=== PATIENT | male | born 1975 | race Caucasian/White ===

== ENCOUNTER 2025-01-19 23:32 | Emergency (ER) | payer OTHER, MEDICAID, SELFPAY ==
[2025-01-19 23:38] VITALS: BP 142/93; PULSE 75; RESP 20; TEMP 37; O2SAT 97; BMI 37.0
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
--- OUTSIDE RECORDS SUMMARY | 2025-01-20 00:39 | XMS_ITS | Encounter Summary ---
Author Organization [facility] Address [address] [place] [address] Care Team Providers Care Technology Auditor Name Role Phone Unavailable Primary Care Provider Unavailabl e Prior Encounters Date Type Department Care Team Description 03/10/2019 Converted CPS Chart Documents [facility] [address] [place] [address] <No scans attached> 03/10/2019 Converted CPS Chart Documents [facility] [id number], [place] [address] <No scans attached> 03/10/2019 Converted 13x Documents [facility] [id number], [place] [address] <No scans attached> 03/10/2019 Converted 13x Documents [facility] [address] [place] [address] <No scans attached> Plan of Treatment Not on file Procedures Procedure Name Priority Date/Time Associated Diagnosis Comments MISSED APPOINTMENT Routine 11/07/2017 12 :00 AM PDT CANCELLED APPOINTMENT Routine 08/23/2017 12:00 AM PDT UL ANTIBACT IRR/QUAD Routine 05/03/2017 12:00 AM PDT LOCAL ANESTHESIA IN CONJUNCTION WITH OPERATIVE OR SURGICAL PROCEDURES Routine 05/03/2017 12:00 AM PDT INTRAORAL PHOTO Routine 05/03/2017 12:00 AM PDT 19 ENDODONTIC THERAPY, MOLAR TOOTH (EXCLUDING FINAL ISLAM) Routine 05/03/2017 12:00 AM PDT 19 CROWN - FULL CAST PREDOMINANTLY BASE METAL Routine 05/03/2017 12:00 AM PDT 13 MOD AMALGAM 3 SURFACE Routine 018 12:00 AM PDT 31 MO AMALGAM 2 SURFACE Routine 05/04/19 18 12:00 AM PDT 18 MO AMALGAM 2 SURFACE Routine 05/04/19 18 12:00 AM PDT 12 DO AMALGAM 2 SURFACE Routine 05/04/19 18 12:00 AM PDT 21 O AMALGAM 1 SURFACE Routine 8 12:00 AM PDT 20 O AMALGAM 1 SURFACE Routine 8 12:00 AM PDT 30 ENDODONTIC THERAPY, MOLAR TOOTH (EXCLUDING FINAL ISLAM) Routine 05/03/2017 12:00 AM PDT 4 ENDODONTIC THERAPY, PREMOLAR TOOTH (EXCLUDING FINAL ISLAM) Routine 05/03/2017 12:00 AM PDT 15 CROWN PFM POST Routine 05/03/2017 12: 00 AM PDT 14 CROWN PFM POST Routine 05/03/2017 12: 00 AM PDT 30 CROWN PFM POST Routine 05/03/2017 12: 00 AM PDT 4 CROWN PFM POST Routine 05/03/2017 12:0 0 AM PDT ADJUNCTIVE PRE-DIAGNOSTIC TEST THAT AIDS IN DETECTION OF MUCOSAL ABNORMALITIES Routine 05/03/2017 12:00 AM PDT COMPREHENSIVE ORAL EVALUATION - NEW OR ESTABLISHED PATIENT Routine 05/03/2017 12:00 AM PDT ORAL HYGIENE INSTRUCTIONS Routine 2017 12:00 AM PDT LR TOSHIA DECON/QD Routine 05/03/2017 12:00 AM PDT LL TOSHIA DECON/QD Routine 05/03/2017 12:00 AM PDT UL TOSHIA DECON/QD Routine 05/03/2017 12:00 AM PDT UR TOSHIA DECON/QD Routine 05/03/2017 12:00 AM PDT 3 UR PERIODONTAL SCALING AND ROOT PLANING - ONE TO THREE TEETH PER QUADRANT Routine 05/03/2017 12:00 AM PDT 14 UL PERIODONTAL SCALING AND ROOT PLANING - ONE TO THREE TEETH PER QUADRANT Routine 05/03/2017 12:00 AM PDT 30 LR PERIODONTAL SCALING AND ROOT PLANING - ONE TO THREE TEETH PER QUADRANT Routine 05/03/2017 12:00 AM PDT 19 LL PERIODONTAL SCALING AND ROOT PLANING - ONE TO THREE TEETH PER QUADRANT Routine 05/03/2017 12:00 AM PDT UR ANTIBACT IRR/QUAD Routine 05/03/2017 12:00 AM PDT LR ANTIBACT IRR/QUAD Routine 05/03/2017 12:00 AM PDT LL ANTIBACT IRR/QUAD Routine 05/03/2017 12:00 AM PDT LOCAL ANESTHESIA IN CONJUNCTION WITH OPERATIVE OR SURGICAL PROCEDURES Routine 05/03/2017 12:00 AM PDT PANORAMIC RADIOGRAPHIC IMAGE Routine 05/03/2017 12:00 AM PDT INTRAORAL - COMPREHENSIVE SERIES OF RADIOGRAPHIC IMAGES Routine 05/03/2017 12:00 AM PDT PLAN VISIT FEE Routine 05/03/2017 12:00 AM PDT INTRAORAL PHOTO Routine 05/03/2017 12:00 AM PDT INTRAORAL PHOTO Routine 05/03/2017 12:00 AM PDT INTRAORAL PHOTO Routine 05/03/2017 12:00 AM PDT INTRAORAL PHOTO Routine 05/03/2017 12:00 AM PDT INTRAORAL PHOTO Routine 05/03/2017 12:00 AM PDT INTRAORAL PHOTO Routine 05/03/2017 12:00 AM PDT INTRAORAL PHOTO Routine 05/03/2017 12:00 AM PDT INTRAORAL PHOTO Routine 05/03/2017 12:00 AM PDT INTRAORAL PHOTO Routine 05/03/2017 12:00 AM PDT CANCELLED APPOINTMENT Routine 04/20/2017 12:00 AM PST 3 CROWN PFM POST Routine 04/16/2017 12:0 0 AM PST 2 CROWN PFM POST Routine 04/16/2017 12:0 0 AM PST 2 CORE BUILDUP, INCLUDING ANY PINS WHEN REQUIRED Routine 04/16/2017 12:00 AM PST 2 RECEMENT CROWN Routine 04/16/2017 12:0 0 AM PST 2 LIMITED ORAL EVALUATION - PROBLEM FOCUSED Routine 04/16/2017 12:00 AM PST BITEWINGS - TWO RADIOGRAPHIC IMAGES Routine 04/16/2017 12:00 AM PST ADDITIONAL X-RAY Routine 04/16/2017 12:0 0 AM PST 2 CROWN Routine 04/16/2017 12:00 AM PST CANCELLED APPOINTMENT Routine 01/05/2009 12:00 AM PST BITEWINGS - TWO RADIOGRAPHIC IMAGES Routine 11/25/2008 12:00 AM PDT 3 CEMENT CROWN Routine 11/25/2008 12:00 AM PDT UR PERIODONTAL SCALING AND ROOT PLANING - FOUR OR MORE TEETH PER QUADRANT Routine 11/19/2008 12:00 AM PDT UL PERIODONTAL SCALING AND ROOT PLANING - FOUR OR MORE TEETH PER QUADRANT Routine 11/19/2008 12:00 AM PDT LR PERIODONTAL SCALING AND ROOT PLANING - FOUR OR MORE TEETH PER QUADRANT Routine 11/19/2008 12:00 AM PDT LL PERIODONTAL SCALING AND ROOT PLANING - FOUR OR MORE TEETH PER QUADRANT Routine 11/19/2008 12:00 AM PDT ORAL HYGIENE INSTRUCTIONS Routine 2008 12:00 AM PDT UR ANTIBACT IRR/QUAD Routine 11/19/2008 12:00 AM PDT UL ANTIBACT IRR/QUAD Routine 11/19/2008 12:00 AM PDT LR ANTIBACT IRR/QUAD Routine 11/19/2008 12:00 AM PDT LL ANTIBACT IRR/QUAD Routine 11/19/2008 12:00 AM PDT FM IRR W/GROSS SCALE Routine 11/19/2008 12:00 AM PDT DEBRIDEMENT TO ENABLE A COMPREHENSIVE PERIODONTAL EVAL AND DIAGNOSIS ON A SUBSEQUENT VISIT Routine 11/19/2008 12:00 AM PDT IPE Routine 11/19/2008 12:00 AM PDT PLAN VISIT FEE Routine 11/19/2008 12:00 AM PDT 13 MOD AMALGAM 3 SURFACE Routine 009 12:00 AM PDT 4 MOD AMALGAM 3 SURFACE Routine 11/18/19 09 12:00 AM PDT 31 MO AMALGAM 2 SURFACE Routine 11/18/19 09 12:00 AM PDT 29 DO AMALGAM 2 SURFACE Routine 11/18/19 09 12:00 AM PDT 18 MO AMALGAM 2 SURFACE Routine 11/18/19 09 12:00 AM PDT 15 LO AMALGAM 2 SURFACE Routine 11/18/19 09 12:00 AM PDT 12 DO AMALGAM 2 SURFACE Routine 11/18/19 09 12:00 AM PDT 5 DO AMALGAM 2 SURFACE Routine 9 12:00 AM PDT 21 O AMALGAM 1 SURFACE Routine 9 12:00 AM PDT 20 O AMALGAM 1 SURFACE Routine 9 12:00 AM PDT 14 CROWN PFM POST Routine 11/17/2008 12: 00 AM PDT 2 CROWN PFM POST Routine 11/17/2008 12:0 0 AM PDT BITEWINGS - FOUR RADIOGRAPHIC IMAGES Routine 11/17/2008 12:00 AM PDT ADDITIONAL X-RAY Routine 11/17/2008 12:0 0 AM PDT ADDITIONAL X-RAY Routine 11/17/2008 12:0 0 AM PDT ADDITIONAL X-RAY Routine 11/17/2008 12:0 0 AM PDT ADDITIONAL X-RAY Routine 11/17/2008 12:0 0 AM PDT ADDITIONAL X-RAY Routine 11/17/2008 12:0 0 AM PDT SINGLE X-RAY Routine 11/17/2008 12:00 AM PDT INTRAORAL PHOTO Routine 11/17/2008 12:00 AM PDT INTRAORAL PHOTO Routine 11/17/2008 12:00 AM PDT INTRAORAL PHOTO Routine 11/17/2008 12:00 AM PDT INTRAORAL PHOTO Routine 11/17/2008 12:00 AM PDT PERIODIC ORAL EVALUATION - ESTABLISHED PATIENT Routine 11/17/2008 12:00 AM PDT PLAN VISIT FEE Routine 11/17/2008 12:00 AM PDT 8 DL COMPOSITE FILLING Routine 9 12:00 AM PDT 3 CEMENT CROWN Routine 01/15/2007 12:00 AM PST MISSED APPOINTMENT Routine 01/15/2007 12 :00 AM PST UR LIMITED ORAL EVALUATION - PROBLEM FOCUSED Routine 01/01/2007 12:00 AM PST UR LIMITED ORAL EVALUATION - PROBLEM FOCUSED Routine 12/21/2006 12:00 AM PDT 30 CEMENT CROWN Routine 12/17/2006 12:00 AM PDT 3 CEMENT CROWN Routine 12/17/2006 12:00 AM PDT 30 ENDODONTIC THERAPY, MOLAR TOOTH (EXCLUDING FINAL ISLAM) Routine 12/17/2006 12:00 AM PDT LR LIMITED ORAL EVALUATION - PROBLEM FOCUSED Routine 12/17/2006 12:00 AM PDT 30 MOD AMALGAM 3 SURFACE Routine 007 12:00 AM PDT 30 [facility] MADE CROWN POST Routine 11/27/2006 12:00 AM PDT 3 [facility] MADE CROWN POST Routine 11/27/2006 12:00 AM PDT 30 CORE BUILDUP, INCLUDING ANY PINS WHEN REQUIRED Routine 11/27/2006 12:00 AM PDT 3 CORE BUILDUP, INCLUDING ANY PINS WHEN REQUIRED Routine 11/27/2006 12:00 AM PDT 19 CEMENT CROWN Routine 11/27/2006 12:00 AM PDT 30 [facility] COPING Routine 11/27/2006 12 :00 AM PDT 3 [facility] COPING Routine 11/27/2006 12: 00 AM PDT LR LIMITED ORAL EVALUATION - PROBLEM FOCUSED Routine 11/27/2006 12:00 AM PDT ADDITIONAL X-RAY Routine 11/27/2006 12:0 0 AM PDT ADDITIONAL X-RAY Routine 11/27/2006 12:0 0 AM PDT SINGLE X-RAY Routine 11/27/2006 12:00 AM PDT INTRAORAL PHOTO Routine 11/27/2006 12:00 AM PDT BITEWINGS - FOUR RADIOGRAPHIC IMAGES Routine 09/20/2006 12:00 AM PDT ADDITIONAL X-RAY Routine 09/20/2006 12:0 0 AM PDT ADDITIONAL X-RAY Routine 09/20/2006 12:0 0 AM PDT ADDITIONAL X-RAY Routine 09/20/2006 12:0 0 AM PDT ADDITIONAL X-RAY Routine 09/20/2006 12:0 0 AM PDT ADDITIONAL X-RAY Routine 09/20/2006 12:0 0 AM PDT SINGLE X-RAY Routine 09/20/2006 12:00 AM PDT 3 MODL AMALGAM 4+ SURFACE Routine 2006 12:00 AM PDT 19 ENDODONTIC THERAPY, MOLAR TOOTH (EXCLUDING FINAL ISLAM) Routine 09/17/2006 12:00 AM PDT 19 CROWN PFM POST Routine 09/17/2006 12: 00 AM PDT 19 [facility] MADE CROWN POST Routine 09/17/2006 12:00 AM PDT 19 CORE BUILDUP, INCLUDING ANY PINS WHEN REQUIRED Routine 09/17/2006 12:00 AM PDT 19 ZIR[facility] COPING Routine 09/17/2006 12 :00 AM PDT MISSED APPOINTMENT Routine 09/05/2006 12 :00 AM PDT FM BLEACH IN-OFFICE Routine 08/13/2006 1 2:00 AM PDT MISSED APPOINTMENT Routine 08/02/2006 12 :00 AM PDT MISSED APPOINTMENT Routine 11/15/2005 12 :00 AM PDT CANCELLED APPOINTMENT Routine 09/30/2005 12:00 AM PDT OFFICE VISIT FOR OBSERVATION (DURING REGULARLY SCHEDULED HOURS) - NO OTHER SERVICES PERFORMED Routine 07/26/2005 12:00 AM PDT SINGLE X-RAY Routine 07/25/2005 12:00 AM PDT LIMITED ORAL EVALUATION - PROBLEM FOCUSED Routine 07/25/2005 12:00 AM PDT PANORAMIC RADIOGRAPHIC IMAGE Routine 03/29/2005 12:00 AM PST INTRAORAL - COMPREHENSIVE SERIES OF RADIOGRAPHIC IMAGES Routine 03/29/2005 12:00 AM PST COMPREHENSIVE ORAL EVALUATION - NEW OR ESTABLISHED PATIENT Routine 03/29/2005 12:00 AM PST Visit Diagnoses Not on file
--- OUTSIDE RECORDS SUMMARY | 2025-01-20 00:39 | XMS_ITS | Clinical Summary ---
Author Organization [facility] Address [address] [place] [id number] Care Team Providers Care Intermediate Card Tender Name Role Phone Virgen White MD Unavailable Titus Conrad MD Primary Care Provider [phone] Allergies No known active allergies Medications durable medical equipment (DME)Indications :Right carpal tunnel syndrome QUICKFIT WRIST II, UNIV/XL, RT 1 Each 06/17/19 23 Active durable medical equipment (DME)Indications :Left carpal tunnel syndrome QUICKFIT WRIST II, UNIV/XL, LT 1 Each 06/17/19 23 Active CPAPIndications: FELIPE (obstructive sleep apnea) CPAP machine for home use at pressure 10 cmw, full face mask x1/3month with a full face cushion x1/mo 1 Each 11 11/22/19 23 Active oxyCODONE-acetam inophen (PERCOCET) 5-325 mg per tabletIndication s:S/P cubital tunnel release,S/P carpal tunnel release Take 1-2 Tablets by mouth every 4 hours if needed for Pain. Max acetaminophen dose: 4000mg in 24 hrs. 15 Tablet 05/03/2023 8:49 AM CDT 05/02/19 24 Active Additional Information Patient not taking.Reason: finished., Reported on 08/29/2024 ibuprofen (ADVIL; MOTRIN) 800 mg tabletIndication s:Closed nondisplaced fracture of proximal phalanx of right thumb, initial encounter Take 1 Tablet (800 mg) by mouth every 8 hours if needed for Pain. 30 Tablet 06/24/19 24 Active pantoprazole (PROTONIX) 40 mg delayed-release tabletIndication s:Chronic GERD Take 1 Tablet (40 mg) by mouth once daily before a meal. 90 Tablet 3 08/30/19 25 Active Active Problems Problem Noted Date Diagnosed Date Chronic left shoulder pain 09/09/2024 Restless leg syndrome 11/21/2022 Chronic GERD 07/21/2022 Third degree burn of right knee 07/13/2022 07/21/2022 Right carpal tunnel syndrome 06/16/2022 Left carpal tunnel syndrome 06/16/2022 Cubital tunnel syndrome on right 06/16/2022 Cubital tunnel syndrome on left 06/16/2022 Trigger middle finger of right hand 06/16/2022 FELIPE 11/26/2015 AHI- 20 05/14/2020 Overview (10/17/2021): Moderate OBSTRUCTIVE SLEEP APNEA sleep study 11/26/2015 see scan wearing cpap Tobacco dependence 05/14/2020 Major depressive disorder, recurrent episode, mo derate 03/20/2019 Generalized anxiety disorder 03/20/2019 PTSD (post-traumatic stress disorder) 03/10/2019 Trochanteric bursitis of right hip 04/11/2018 Arthritis of knee, right 03/14/2018 Arthritis of right hip 03/14/2018 Facet arthropathy, lumbosacral 12/09/2017 Low back pain radiating to left leg 11/15/2017 Lumbar disc herniation L5-S1 11/15/2017 Upper back pain 11/15/2017 Neck pain 11/15/2017 Other hyperlipidemia 10/24/2017 Overview (10/24/2017): was on statin Blood per rectum Resolved Problems Problem Noted Date Diagnosed Date Resolved Date Cannabis use disorder, severe, dependence 08/29/2021 04/27/2023 S/P shoulder surgery 01/09/2019 022 Arthrosis of right acromioclavicular joint 01/06/2019 08/30/2021 Chronic right shoulder pain 01/06/2019 08/30/2021 Encounters Date Type Department Care Team Description 01/08/2025 Telephone [facility] [place] [address] [address] [phone] Adam Hodgson MD Form (letter needed ) from Last 3 Months Immunizations Immunization Administration Dates Next Due TD, UNSPECIFIED 02/19/2006 Tdap 07/07/2022,07/16/2015 Typhoid (injectable) 11/07/2018 Yellow Fever (Stamaril) 11/07/2018 Family History Medical History Relation Name Comments Hypertension Father Heart failure Maternal Grandfather heart attack Diabetes Mother Cancer Paternal Grandfather Anesthesia Problem No Family History Relation Name Status Comments Brother 1 Alive Brother 2 Alive Brother 3 Alive Daughter Alive Father Alive Maternal Grandfather (Age 47) Maternal Grandmother Mother Alive Paternal Grandfather Paternal Grandmother Sister 1 Alive Sister 2 Alive Sister 3 Alive Social History Tobacco Use Types Packs/Day Years Used Date Smoking Tobacco: Every Day Cigarettes 1 16.4 Started: 2003; Last attempted to quit: 11/28/2018 Smokeless Tobacco: Never Comments:May 10, 2020 Alcohol Use Standard Drinks/Week Comments Not Currently 0 (1 standard drink = 0.6 oz pur e alcohol) rare PHQ-2 Answer Date Recorded PHQ-2 TOTAL SCORE 2 08/29/2024 Social Connections Answer Date Recorded Do you often feel lonely or isolated from those around you? 0 08/29/2024 Financial Resource Strain Answer Date R ecorded Difficulty of Paying Living Expenses 3 08/29/2024 Difficulty of Paying Living Expenses Not on file 08/29/2024 Food Insecurity Answer Date Recorded Do you worry your food will run out before you are able to buy more? 1 08/29/2024 Transportation Needs Answer Date Record ed Does lack of transportation keep you from medica l appointments? 1 08/29/2024 Does lack of transportation keep you from work, meetings or getting things that you need? 1 08/29/2024 Housing Stability Answer Date Recorded What is your housing situation today? 1 08/29/2024 Interpersonal Safety Answer Date Record ed Are you being hit, kicked, p ushed or yelled at (see row info)? No 06/24/2023 Interpersonal Safety Abuse 12 - 18 Not on file 06/24/2023 Interpersonal Safety Ambulatory Vulnerability No t on file 06/24/2023 Utilities Answer Date Recorded Do you have trouble paying f or utilities (for example, heat, electricity, water, phone)? 1 08/29/2024 Sex and Gender Information Value Date Recorded Sex Assigned at Male 11/21/2022 10:50 AM CDT Legal Sex Male 11:50 AM CDT Gender Identity Male 11/21/2022 10:50 AM CDT Sexual Orientation Straight 11/21/2022 10 :50 AM CDT Occupation Industry Job Start Date Job End Date disability/retired from firefighting Not on file Not on file Not on file Obstetrics History Last Filed Vital Signs Vital Sign Reading Time Taken Comments Blood Pressure 117/77 08/29/2024 2:28 PM CDT Pulse 78 08/29/2024 2:28 PM CDT Temperature 36.7 C (98.1 F) 06/24/2023 8:26 PM CDT Respiratory Rate 16 06/24/2023 8:26 PM CDT Oxygen Saturation 98% 08/29/2024 2:28 PM CDT Inhaled Oxygen Concentration - - Weight 108.4 kg (239 lb) 08/29/2024 2:28 PM CDT Height 178.3 cm (5' 10.2) 08/29/2024 2:28 PM CD T Body Mass Index 34.1 08/29/2024 2:28 PM CDT Plan of Treatment Upcoming Encounters Date Type Department Care Team (Late st Contact Info) Description 01/26/2025 1:00 PM COUNTERINTELLIGENCE/HUMINT SPECIALIST Appointment [facility] [address] [place] [address] 02/02/2025 2:00 PM COUNTERINTELLIGENCE/HUMINT SPECIALIST Office Visit [facility] [address] [place] [address] Christopher Quiroz MD [address] [place] [address] Health Maintenance Due Date Last Done Comments Hepatitis B series for 19+ ( 1 of 3 - 19+ 3-dose series) 1993 Pneumococcal series for age 50+ (1 of 2 - PCV) 1993 Zoster (shingles) series for age 50+ (1 of 2) 2024 COVID-19 vaccine series (1 - 2024- season) 2024 Influenza Vaccine (#1) 2024 BMI (ht and wt on same day) for age 18+ 08/29/2025 08/29/2024, 04/27/2023, 08/30/2021, Additional history exists Depression screening for age 12+ 08/29/2025 08/29/2024, 08/30/2021, 05/14/2020, Additional history exists Lipids for age 45-75 08/30/2026 08/30/2021, 08/30/2021, 01/06/2019, Additional history exists Colonoscopy through age 75 03/15/202903/15, 05/20/2016 ([facility]) Tetanus booster 07/07/2032 07/07/2022, 06/20, 02/19/2006 RSV vaccine for adults or (1 - 1-dose 75+ series) 2049 Hepatitis C screening for ag e 18-79 Completed 08/30/2021 HIV for age 15-65 Completed 08/29/2024 Procedures Procedure Name Priority Date/Time Associated Diagnosis Comments ANTI HIV 1/2 Routine 08/29/2024 3:36 PM CDT Screening for HIV (human immunodeficiency virus) COLONOSCOPY 03/15/2022 10:10 AM COUNTERINTELLIGENCE/HUMINT SPECIALIST ANTI HCV Routine 08/30/2021 11:53 AM CDT Encounter for hepatitis C screening test for low risk patient LDL CHOLESTEROL,DIRECT Routine 08/30/2021 11:53 AM CDT Obesity, Class II, BMI 35-39.9 from Last 3 Months or Most Recently Relevant to Health Maintenance Results * ANTI HIV 1/2 [65894.0] (08/29/2024 3:36 PM CDT) HIV FINAL INTERPRETATOIN [facility] Comment: HIV Negative HIV-1 antigen and HIV-1/HIV-2 antibodies were not detected. There is no laboratory evidence of HIV infection. HIV AG/AB, 4TH GEN NON-REACT SHITAL NON-REACT SHITAL [facility] Blood BLOOD SPECIMEN / Unknown 08/29/2024 3:36 PM CDT 08/29/2024 3:37 PM CDT us Titus Conrad MD SEND OUTS Final Resu lt [facility] [address] [place] [address], [facility] [address] [place] [address] * COLONOSCOPY (03/15/2022 10:10 AM COUNTERINTELLIGENCE/HUMINT SPECIALIST) 03/15/2022 10:1 0 AM COUNTERINTELLIGENCE/HUMINT SPECIALIST Narrative Transcriptions Ariana Davalos DO - 03/15/2022 1:37 PM CST Patient Name: Yousuf Ruby Procedure Date: 03/15/2022 Gender: Male Date of : 1975 Admit Type: Ambulatory Procedure: Colonoscopy Proceduralist: Ariana Davalos MD Indications/Pre-Op Diagnosis: Rectal bleeding, Change in bowel habits Medications: Propofol per Anesthesia, MonitoredAnesthesia Care Procedure Description: The patient had risks, benefits and alternatives explained to andgave informed consent. The patient had a stable cardiopulmonary status and judged an adequate candidate for conscious sedation. The endoscope [id number] was passed through the anus and advanced to 4 cm into the ileum. The colonoscopy was performedwithout difficulty. The patient tolerated the procedure well. The quality ofthe bowel preparation was good. The terminal ileum, ileocecal valve, appendiceal orifice, and rectum were photographed. Complications: No immediate complications. Estimated blood loss: Minimal. Estimated Blood Loss & Specimen: Estimated blood loss was minimal. Specimen collected - Yes and sent to Laboratory Findings: Hemorrhoids were found on perianal exam. An 8 mm polyp was found in the descending colon. The polyp was semi-pedunculated. The polyp was removed with a hot snare. Resectionand retrieval were complete. Verification of patient identification forthe specimen was done. Estimated blood loss: none. Localized mild inflammation characterized by friability was found inthe terminal ileum. Biopsies were taken with a cold forceps forhistology. Verification of patient identification for the specimen was done. Estimated blood loss was minimal. The retroflexed view of the distal rectum and anal verge was normaland showed no anal or rectal abnormalities. Non-bleeding internal hemorrhoids were found during retroflexion,during digital exam and during endoscopy. The hemorrhoids were mild, smalland Grade I (internal hemorrhoids that do not prolapse). Impressions/Post-Op Diagnosis: - Hemorrhoids found on perianal exam. - One 8 mm polyp in the descending colon, removed with a hot snare. Resected and retrieved. - Mild inflammation was found in the ileum secondary to ileitis. Biopsied. - The distal rectum and anal verge are normal on retroflexion view. - Non-bleeding internal hemorrhoids. Recommendation: - Discharge patient to home (ambulatory). - Advance diet as tolerated today. - Continue present medications. - Await pathology results. - Repeat colonoscopy in 5-10 years for surveillance based onpathology results. Ariana Davalos MD 03/15/2022 1:37:46 PM This report has been signed electronically. Note Initiated On: 03/15/2022 10:10 AM Ariana Davalos DO PROCEDURE ORD Final Res ult * ANTI HCV (08/30/2021 11:53 AM CDT) HEPATITIS C ANTIBODY Non-React shital Non-React shital 08/31/2021 10:38 AM CDT [facility] Comment:Antibodies to HCV no t detected; does not exclude the possibility of exposure to HCV. Blood BLOOD SPECIMEN / Unknown Venipuncture / Unknown 08/30/2021 11:53 AM CDT 08/30/2021 11:54 AM CDT Ariana Serrano NP SEND OUTS Final Result [facility] [address] [place] [address], * LDL CHOLESTEROL,DIRECT (08/30/2021 11:53 AM CDT) Pathologist [facility] LDL CHOLESTEROL,DI RECT 86 mg/dL 08/30/2021 12:47 PM CDT [facility] PROVIDER ORDERED STATUS RANDOM 08/30/2021 12:47 PM CDT [facility] Blood BLOOD SPECIMEN / Unknown Venipuncture / Unknown 08/30/2021 11:53 AM CDT 08/30/2021 11:54 AM CDT Narrative [facility] - 08/30/2021 12:47 PM CDT RISK CATEGORY LDL GOAL (mg/dL) Vascular disease and/or diabetes (<100) Multiple (2+) risk factors (<130) 0-1 risk factor (<160) Ariana Serrano NP CHEMISTRY Final Result [facility] [address] [place] [address] from Last 3 Months or Most Recently Relevant to Health Maintenance Insurance [facility] Advance Directives * Full Code (Latest Code Status on File) Date Activated Date Inactivated Comments 05/02/2023 6:39 AM 05/02/2023 2:13 PM Question Answer Comments Code Status Discussion: Unable to Assess Preferences, Provider to review later * Full Code Date Activated Date Inactivated Comments 03/15/2022 9:28 AM 03/15/2022 2:39 PM Question Answer Comments Code Status Discussion: Discussed * Full Code Date Activated Date Inactivated Comments 01/07/2019 6:13 AM 01/07/2019 2:44 PM Care Teams Intermediate Card Tender Relationship Specialty Start Date End Date Titus Conrad MD [facility] [place] [address] PCP - General Family Practice 06/09/20 Virgen White MD [address] [place] [address] Psychiatry Psychiatry 05/14/19
--- OUTSIDE RECORDS SUMMARY | 2025-01-20 00:39 | XMS_ITS | Clinical Summary ---
Author Organization [facility] Address [address] [place] [address] Care Team Providers Care Heel Washer Stringing Machine Operator Name Role Phone Unavailable Primary Care Provider Unavailabl e Social History Tobacco Use Types Packs/Day Years Used Date Smoking Tobacco: Never Assessed Sex and Gender Information Value Date Recorded Sex Assigned at Not on file Legal Sex Male 12:13 PM PST Gender Identity Not on file Sexual Orientation Not on file Plan of Treatment Not on file
--- NOTE | 2025-01-20 00:52 | CRLHL7_ITS ---
For Patients: As a result of the Century Cures Act, medical imaging exams and procedure reports are released immediately into your electronic medical record. You may view this report before your referring provider. If you have questions, please contact your health care provider. Indication: Trauma. Technique: Three views of the left shoulder. Comparison: Left shoulder radiographs 09/09/2024. Findings/Impression: No acute fracture appreciated. Grossly unchanged irregularity of the glenoid. No dislocation. No suspicious osseous lesion. Glenohumeral and acromioclavicular alignment are maintained with mild degenerative changes. No suspicious soft tissue abnormality. Dictated by Shiva Mckenzie MD @ 01/20/2025 1:18:00 AM (Electronically Signed)
[2025-01-20] MEDS: IBUPROFEN 600 MG TABLET PO (01:05)
== END 2025-01-20 01:31 | disposition home or self-care (01) ==
PROVIDERS: Emergency Provider Family Medicine; PCP Family Medicine
DX: S43.102A Unspecified dislocation of left acromioclavicular joint, initial encounter (principal); V43.52XA Car driver injured in collision with other type car in traffic accident, initial encounter
CPT/HCPCS: 73030; 99283; 99284; A9270